=== PATIENT | female | born 1985 | race Caucasian/White ===

== ENCOUNTER 2022-03-31 16:24 | Emergency (ER) | payer OTHER ==
[2022-03-31 17:06] VITALS: PULSE 117; RESP 18; TEMP 97.4
[2022-03-31 19:04] LABS: Amphetamine Screen,Urine Detected (NotDetected); Barbiturate Screen,Urine Not Detected (NotDetected); Benzodiazepines Screen,Urine Not Detected (NotDetected); Cocaine Screen,Urine Detected (NotDetected); Methadone Screen, Urine Not Detected (NotDetected); Opiate Screen,Urine Not Detected (NotDetected); Oxycodone Screen, Urine Not Detected (NotDetected); Phencyclidine Screen,Urine Not Detected (NotDetected); Tricyclic Antidepressant,Urine Not Detected (NotDetected); Urn Cannabinoid Scrn Not Detected (NotDetected)
--- NOTE | 2022-03-31 19:30 | ED ---
Psych HPI - General Chief Complaint: Psychiatric Symptoms Stated Complaint: mental health Time Seen by Provider: 03/31/22 16:46 Source: police, EMS Mode of arrival: EMS - History of Present Illness Initial Comments: This 36-year-old female presents after she apparently had a seizure. She states that she does not exactly know what happened. She does have a history of seizure disorders and will have seizures fairly frequently. She does present via EMS accompanied by police and apparently there was some suicidal thoughts per police. Upon discussion with patient, she states that she is not having any depression or suicidal ideations. She states that she feels fine at this time and does not feel as though she needs any additional treatment. Per the police petition, she apparently was running around traffic requesting a car to hit her. The patient apparently does have a history of drug abuse. She denies any other complaints or modifying factors. There is no injuries. She is feeling back to her normal state at this time. She denies any alcohol use or abuse. She is currently staying at a long term. She does have a history of bipolar disorder among other psychiatric illnesses and essentially is noncompliant with medications and follow-up. - Related Data Home Medications Medication Instructions Recorded Confirmed Folic Acid 1 mg PO DAILY 03/31/22 03/31/22 Norethindrone [Ortho Micronor] 0.35 mg PO DAILY 03/31/22 03/31/22 levETIRAcetam [Keppra] 1,000 mg PO BID 03/31/22 03/31/22 Allergies Allergy/AdvReac Type Severity Reaction Status Date / Time Bleach (Sodium Hypochlorite) Allergy Rash/Hives Verified 03/31/22 17:45 Review of Systems ROS Statement: Those systems with pertinent positive or pertinent negative responses have been documented in the HPI. ROS Other: All systems not noted in ROS Statement are negative. Past Medical History Past Medical History: Seizure Disorder History of Any Multi-Drug Resistant Organisms: None Reported Past Surgical History: No Surgical Hx Reported Past Psychological History: ADD/ADHD, Anxiety, Bipolar, Depression Smoking Status: Current every day smoker Past Alcohol Use History: Rare Past Drug Use History: Marijuana General Exam - General Exam Comments Initial Comments: GENERAL: The patient is well nourished and well hydrated. VITAL SIGNS: Heart rate, blood pressure, respiratory rate reviewed as recorded in nurse's notes. EYES: Pupils are round and reactive. Extraocular movements are intact. No conjunctival / lid redness or swelling. ENT: No external evidence of injury, swelling, or ecchymosis. Airway is patent. Throat is clear. NECK: Nontender. No swelling or evidence of injury. No subcutaneous emphysema. Trachea is midline. No thyroid mass. HEART: Regular rate and rhythm. Good peripheral pulses. LUNGS/CHEST: Breath sounds clear and equal bilaterally. No rales, rhonchi, or wheezes. No ecchymosis, subcutaneous emphysema, or tenderness. ABDOMEN: Abdomen soft without tenderness. No palpable masses or organomegaly. No peritoneal signs. No abdominal wall swelling or ecchymosis. EXTREMITIES: No extremity tenderness. Normal muscle tone and function. No thoracolumbar tenderness. NEUROLOGIC: Sensation is grossly intact. Cranial nerve exam reveals face is symmetrical, tongue is midline, speech is clear. SKIN: No abrasions or ecchymosis is noted. No induration or masses noted. PSYCHIATRIC: Alert and oriented. Appropriate behavior and judgment. Limitations: no limitations Course Vital Signs 03/31/22 16:59 Temperature 97.4 F L Pulse Rate 117 H Respiratory 18 Rate O2 Sat by Pulse 98 Oximetry Medical Decision Making - Medical Decision Making The patient is seen and examined. All diagnostics are reviewed. Her drug screen is positive for amphetamines as well as methamphetamines, and cocaine. Patient also relates that she has been utilizing marijuana. The patient is seen by our mental health department and they feel as though she is stable for discharge home. They feel as though she likely did have altered mental status due to the drug abuse. She is back to baseline at this time. She is denying any suicidal ideations or depression. She does relate that she is somewhat anxious but that is chronic for her. She is counseled regarding drug abuse. She is counseled regarding compliance with psychiatric treatment and prescription regimen. Close follow-up recommended. Return parameters discussed. - Lab Data Lab Results 03/31/22 03/31/22 Range/Units 18:42 18:42 Urine HCG, Qual Not Detected (Not Detectd) Urine Opiates Screen Not Detected (NotDetected) Ur Oxycodone Screen Not Detected (NotDetected) Urine Methadone Screen Not Detected (NotDetected) Ur Propoxyphene Screen Not Detected (NotDetected) Ur Barbiturates Screen Not Detected (NotDetected) U Tricyclic Antidepress Not Detected (NotDetected) Ur Phencyclidine Scrn Not Detected (NotDetected) Ur Amphetamines Screen Detected H (NotDetected) U Methamphetamines Scrn Detected H (NotDetected) U Benzodiazepines Scrn Not Detected (NotDetected) Urine Cocaine Screen Detected H (NotDetected) U Marijuana (THC) Screen Not Detected (NotDetected) Disposition Clinical Impression: Seizure, Anxiety, Polysubstance abuse Disposition: HOME SELF-CARE Condition: Good Instructions (If sedation given, give patient instructions): Epilepsy (ED), Anxiety (ED), Methamphetamine Abuse (ED), Cannabis Abuse (ED), Cocaine Abuse ( ED) Is patient prescribed a controlled substance at d/c from ED?: No Referrals: Nonstaff,Physician [Primary Care Provider] - 1-2 days Time of Disposition: 19:33
== END 2022-03-31 19:56 | disposition home or self-care (01) ==
LOC: EC 16:24
DX: R56.9 Unspecified convulsions (principal); F41.9 Anxiety disorder, unspecified; F19.10 Other psychoactive substance abuse, uncomplicated; F31.9 Bipolar disorder, unspecified; F17.200 Nicotine dependence, unspecified, uncomplicated; F12.90 Cannabis use, unspecified, uncomplicated; Z91.048 Other nonmedicinal substance allergy status; Z79.899 Other long term (current) drug therapy
CPT/HCPCS: 80306; 81025; 82075; 99284